=== PATIENT | male | born 1990 | race Hispanic/Latino ===

== ENCOUNTER 2020-07-11 08:52 | Emergency (ER) | payer SELFPAY ==
--- NOTE | 2020-07-11 09:44 | Emergency Department Report ---
HPI - General Chief Complaint: Psych Time Seen by Provider: 07/11/20 09:33 - HPI HPI: Room 12 The patient is a 29-year-old male present with a chief complaint of suicidal homicidal ideation. The patient states for the past 3 days she is felt suicidal and homicidal. Patient states she is had auditory hallucinations telling him to hurt himself and other people. The patient states she is been off of his medications for some time. ED Past Medical Hx - Past Medical History Previous Medical History?: Yes Hx Hypertension: Yes Additional medical history: Schizophrenia, Depression - Surgical History Past Surgical History?: Yes Additional Surgical History: right leg - Family History Family history: no significant - Social History Smoking Status: Never Smoker Substance Use Type: None - Medications Home Medications: Home Medications Medication Instructions Recorded Confirmed Last Taken Type Amlodipine Besylate [Norvasc] 5 mg PO DAILY 07/01/20 07/01/20 1 Week Ago History ~06/24/20 Trazodone HCl 100 mg PO DAILY 07/01/20 07/01/20 1 Week Ago History ~06/24/20 Valproic Acid [DepaKENE] 250 mg PO ONCE 07/01/20 07/01/20 1 Week Ago History ~06/24/20 risperiDONE [RisperDAL] 2 mg PO BID 07/01/20 07/01/20 1 Week Ago History ~06/24/20 ED Review of Systems ROS: Stated complaint: HEARING VOICES Other details as noted in HPI Constitutional: no symptoms reported Respiratory: no symptoms reported Endocrine: no symptoms reported Psychiatric: auditory hallucinations, visual hallucinations, homicidal thoughts, suicidal thoughts Physical Exam - Physical Exam Physical Exam: GENERAL: The patient is well-developed well-nourished male sitting in chair appearing slightly anxious but in no acute distress HEENT: Normocephalic. Atraumatic. Extraocular motions are intact. Patient has moist mucous membranes. NECK: Supple. Trachea midline CHEST/LUNGS: Clear to auscultation. There is no respiratory distress noted. HEART/CARDIOVASCULAR: Regular. There is no tachycardia. There is no gallop rub or murmur. ABDOMEN: Abdomen is soft, nontender. Patient has normal bowel sounds. There is no abdominal distention. SKIN: There is no rash. There is no edema. There is no diaphoresis. NEURO: The patient is awake and alert. The patient is cooperative. The patient has normal speech MUSCULOSKELETAL: There is no evidence of acute injury. ED Medical Decision Making - Lab Data Result diagrams: 07/11/20 09:07 07/11/20 09:07 Laboratory Tests 07/11/20 07/11/20 07/11/20 09:07 09:07 09:07 WBC RBC Hgb Hct MCV MCH MCHC RDW Plt Count Lymph % (Auto) [place] % (Auto) Eos % (Auto) Baso % (Auto) Lymph # [place] # Eos # Baso # Seg Neutrophils % Seg Neutrophils # Sodium 139 Potassium 4.3 Chloride 99.8 Carbon Dioxide 24 Anion Gap 20 BUN 8 L Creatinine 1.0 Estimated GFR > 60 BUN/Creatinine Ratio 8 Glucose 81 Calcium 10.4 H Urine Color Urine Turbidity Urine pH Ur Specific [place] Urine Protein Urine Glucose (UA) Urine Ketones Urine Blood Urine Nitrite Urine Bilirubin Urine Urobilinogen Ur Leukocyte Esterase Urine WBC (Auto) Urine RBC (Auto) Urine Mucus Salicylates Urine Opiates Screen Urine Methadone Screen Acetaminophen 5.0 L Ur Barbiturates Screen Valproic Acid Ur Phencyclidine Scrn Ur Amphetamines Screen U Benzodiazepines Scrn Plasma/Serum Alcohol < 0.01 07/11/20 07/11/20 07/11/20 09:07 09:42 10:12 WBC 8.0 RBC 4.32 Hgb 14.5 Hct 43.1 MCV 100 H MCH 33 H MCHC 34 RDW 13.5 Plt Count 231 Lymph % (Auto) 22.7 [place] % (Auto) 14.0 H Eos % (Auto) 0.3 Baso % (Auto) 0.7 Lymph # 1.8 [place] # 1.1 H Eos # 0.0 Baso # 0.1 Seg Neutrophils % 62.3 Seg Neutrophils # 5.0 Sodium Potassium Chloride Carbon Dioxide Anion Gap BUN Creatinine Estimated GFR BUN/Creatinine Ratio Glucose Calcium Urine Color Yellow Urine Turbidity Clear Urine pH 8.0 H Ur Specific [place] 1.014 Urine Protein <15 mg/dl Urine Glucose (UA) Neg Urine Ketones Neg Urine Blood Neg Urine Nitrite Neg Urine Bilirubin Neg Urine Urobilinogen < 2.0 Ur Leukocyte Esterase Neg Urine WBC (Auto) < 1.0 Urine RBC (Auto) 1.0 Urine Mucus Few Salicylates < 0.3 L Urine Opiates Screen Urine Methadone Screen Acetaminophen Ur Barbiturates Screen Valproic Acid 5.6 L Ur Phencyclidine Scrn Ur Amphetamines Screen U Benzodiazepines Scrn Plasma/Serum Alcohol 07/11/20 10:12 WBC RBC Hgb Hct MCV MCH MCHC RDW Plt Count Lymph % (Auto) [place] % (Auto) Eos % (Auto) Baso % (Auto) Lymph # [place] # Eos # Baso # Seg Neutrophils % Seg Neutrophils # Sodium Potassium Chloride Carbon Dioxide Anion Gap BUN Creatinine Estimated GFR BUN/Creatinine Ratio Glucose Calcium Urine Color Urine Turbidity Urine pH Ur Specific [place] Urine Protein Urine Glucose (UA) Urine Ketones Urine Blood Urine Nitrite Urine Bilirubin Urine Urobilinogen Ur Leukocyte Esterase Urine WBC (Auto) Urine RBC (Auto) Urine Mucus Salicylates Urine Opiates Screen Negative Urine Methadone Screen Negative Acetaminophen Ur Barbiturates Screen Negative Valproic Acid Ur Phencyclidine Scrn Negative Ur Amphetamines Screen Negative U Benzodiazepines Scrn Negative Plasma/Serum Alcohol - Differential Diagnosis Suicidal ideation, homicidal ideation Critical care attestation.: If time is entered above; I have spent that time in minutes in the direct care of this critically ill patient, excluding procedure time. ED Disposition Clinical Impression: Suicidal ideation, Auditory hallucinations, Schizophrenia, Homicidal ideation Disposition: [id number]/TX-65 PSY HOSP/PSY UNIT Is pt being admited?: No Does the pt Need Aspirin: No Condition: Stable Time of Disposition: 11:10 (Awaiting acceptance)
[2020-07-11 09:55] LABS: Basophils # (Auto) 0.1 K/mm3 (0.0-0.1); Basophils % (Auto) 0.7 % (0.0-1.8); Eosinophils % (Auto) 0.3 % (0.0-4.3); Hematocrit 43.1 % (35.5-45.6); Hemoglobin 14.5 gm/dl (11.8-15.2); Lymphocytes # (Auto) 1.8 K/mm3 (1.2-5.4); Lymphocytes % (Auto) 22.7 % (13.4-35.0); Mean Corpuscular HGB Conc 34 % (32-34); Mean Corpuscular Volume 100 fl (84-94); Monocytes # (Auto) 1.1 K/mm3 (0.0-0.8); Platelet Count 231 K/mm3 (140-440); Red Blood Count 4.32 M/mm3 (3.65-5.03); Red Cell Distribution Width 13.5 % (13.2-15.2)
[2020-07-11 10:16] LABS: BUN/Creatinine Ratio 8; Blood Urea Nitrogen 8 mg/dL (9-20); Calcium 10.4 mg/dL (8.4-10.2); Hemolysis Index 20
[2020-07-11 10:29] LABS: Bilirubin,Urine NEG (Negative); Blood,Urine NEG (Negative); Color,Urine Yellow (Yellow); Mucus,Urine FEW /HPF; Protein,Urine <15 mg/dL mg/dL (Negative); Urobilinogen,Urine < 2.0 mg/dL (<2.0); WBC,Urine < 1.0 /HPF (0.0-6.0)
[2020-07-11 10:42] LABS: Amphetamine Screen,Urine Negative; Benzodiazepines Screen,Urine Negative; Methadone Screen,Urine Negative; Opiate Screen,Urine Negative
[2020-07-11 10:55] LABS: Cannabinoid Screen,Urine Positive; Cocaine Screen,Urine Positive
[2020-07-11] MEDS: risperiDONE 1 MG TAB PO SCH ×2 (11:19→22:36)
[2020-07-11] MEDS ORDERED: diphenhydrAMINE 50 MG/ML VIAL IM PRN (11:49)
[2020-07-11] MEDS ORDERED: HALOPERIDOL LACTATE 5 MG/1 ML INJ IM PRN (11:49)
[2020-07-11] MEDS ORDERED: LORazepam 2 MG/ML VIAL IM PRN (11:49)
[2020-07-12 08:41] VITALS: BP 123/91
[2020-07-12] MEDS: risperiDONE 1 MG TAB PO SCH (10:04)
--- NOTE | 2020-07-12 14:15 | Consultation ---
History of Present Illness - Reason for Consult Consult date: 07/12/20 Reason for consult: MHE Requesting physician: GISELA GAMBOA - Chief Complaint Chief complaint: SI - History of Present Psychiatric Illness Per ED Provider: The patient is a 29-year-old male present with a chief complain t of suicidal homicidal ideation. The patient states for the past 3 days she is felt suicidal and homicidal. Patient states she is had auditory hallucinations telling him to hurt himself and other people. The patient states she is been off of his medications for some time. 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 Patient states he is no longer SI and he mentioned that only because he would be allowed to stay. He also endorses to snorting white powder recent and marijuana. He says he does hear voices sometimes but not anymore and he has medi cations where he stays that he needs to go back and continue his meds. He says he is well aware of his schizophrenia and when he takes his meds, he is fine. 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 Cooperation: Participating/engaged Psychomotor Behavior: , unremarkable and within normal limits Mood: Good Affect and affective range: anxious Thought Process: Fluent/Logical, Blocked, Thought Content: Within reality Speech: Normal volume, Regular rate and rhythm Suicidal Ideation: Denies SI Homicidal Ideation: Denies HI Impulse Control: Unimpaired Insight and Judgment: Limited insight and judgment Memory: Natalie Attention: Normal Orientation: Alert, oriented, anxious Diagnosis Substance induce mood disorder Medication non compliance RECOMMENDATIONS Pt states he does not want meds, he has meds at home. MEDICATIONS: Risks, benefits and alternatives of medications discussed with the patient, questions answered and consent obtained from patient. PSYCHOTHERAPY: Supportive psychotherapy provided MEDICAL: Per primary team DELIRIUM PRECAUTIONS: Please re-orient patient frequently, keep lights on during the day, and minimize benzodiazepines and opiates as these medications could worsen patient's confusion. 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 Please contact with any questions and/or concerns. Medications and Allergies Allergies Allergy/AdvReac Type Severity Reaction Status Date / Time No Known Allergies Allergy Unverified 06/30/20 10:15 Home Medications Medication Instructions Recorded Confirmed Last Taken Type Amlodipine Besylate [Norvasc] 5 mg PO DAILY 07/01/20 07/11/20 1 Week Ago History ~06/24/20 Trazodone HCl 100 mg PO DAILY 07/01/20 07/11/20 1 Week Ago History ~06/24/20 Valproic Acid [DepaKENE] 250 mg PO ONCE 07/01/20 07/11/20 1 Week Ago History ~06/24/20 risperiDONE [RisperDAL] 2 mg PO BID 07/01/20 07/11/20 1 Week Ago History ~06/24/20 Active Meds: Active Medications Diphenhydramine HCl (Benadryl) 50 mg IM Q6H PRN PRN Reason: Agitation Last Admin: 07/11/20 11:55 Dose: 50 mg Documented by: Haloperidol Lactate (Haldol) 10 mg IM Q8H PRN PRN Reason: Agitation Lorazepam (Ativan) 2 mg IM Q8H PRN PRN Reason: Agitation Last Admin: 07/11/20 11:55 Dose: 2 mg Documented by: Risperidone (Risperdal) 2 mg PO BID ANDREW Last Admin: 07/12/20 10:04 Dose: 2 mg Documented by: Mental Status Exam - Vital signs Last Vital Signs Temp 98.0 F 07/12/20 08:40 Pulse 93 H 07/12/20 08:40 Resp 20 07/12/20 08:40 BP 123/91 07/12/20 08:40 Pulse Ox 96 07/12/20 08:40 Results Result Diagrams: 07/11/20 09:07 07/11/20 09:07 All other labs normal. Assessment and Plan - Psychiatric problem (1) Cocaine use disorder Current Visit: Yes Status: Acute
== END 2020-07-12 18:14 | disposition home or self-care (01) ==
LOC: ED 08:52
DX: F20.89 Other schizophrenia (principal); F13.94 Sedative, hypnotic or anxiolytic use, unspecified with sedative, hypnotic or anxiolytic-induced mood disorder
CPT/HCPCS: 36415; 80048; 80164; 80307; 81001; 85025; 96372; 99284; J1200; J1630; J2060; 80320; G0480

== ENCOUNTER 2020-07-12 23:52 | Emergency (ER) | payer SELFPAY ==
--- NOTE | 2020-07-13 00:26 | Emergency Department Report ---
ED Psych HPI - General Chief Complaint: Psych Stated Complaint: MH Time Seen by Provider: 07/13/20 00:07 Source: patient, EMS Mode of arrival: Ambulatory - History of Present Illness Initial Comments: Patient is a 29-year-old F [place] male who is presenting again for homicidal suicidal ideations. Patient was seen by our psych assessment team and apparently according to their note stated that he only stated that he was homicidal suicidal so that he can have somewhere to stay. Patient is adamant that this is not true and that he is hearing voices telling him to kill himself and shoot people. Patient states he needs to go somewhere to be stabilized because he feels like he is a harm to himself and others. Again patient is adamant that he did not state that he was only here for secondary gain. - Related Data Home Medications Medication Instructions Recorded Confirmed Last Taken Amlodipine Besylate [Norvasc] 5 mg PO DAILY 07/01/20 07/13/20 1 Week Ago ~06/24/20 Trazodone HCl 100 mg PO DAILY 07/01/20 07/13/20 1 Week Ago ~06/24/20 Valproic Acid [DepaKENE] 250 mg PO ONCE 07/01/20 07/13/20 1 Week Ago ~06/24/20 risperiDONE [RisperDAL] 2 mg PO BID 07/01/20 07/13/20 1 Week Ago ~06/24/20 Allergies Allergy/AdvReac Type Severity Reaction Status Date / Time No Known Allergies Allergy Unverified 06/30/20 10:15 ED Review of Systems ROS: Stated complaint: MH Other details as noted in HPI Comment: All other systems reviewed and negative ED Past Medical Hx - Past Medical History Previous Medical History?: Yes Hx Hypertension: Yes Additional medical history: Schizophrenia, Depression - Surgical History Past Surgical History?: Yes Additional Surgical History: right leg - Social History Smoking Status: Unknown if ever smoked Substance Use Type: None - Medications Home Medications: Home Medications Medication Instructions Recorded Confirmed Last Taken Type Amlodipine Besylate [Norvasc] 5 mg PO DAILY 07/01/20 07/13/20 1 Week Ago History ~06/24/20 Trazodone HCl 100 mg PO DAILY 07/01/20 07/13/20 1 Week Ago History ~06/24/20 Valproic Acid [DepaKENE] 250 mg PO ONCE 07/01/20 07/13/20 1 Week Ago History ~06/24/20 risperiDONE [RisperDAL] 2 mg PO BID 07/01/20 07/13/20 1 Week Ago History ~06/24/20 ED Physical Exam - General Limitations: No Limitations General appearance: alert, in no apparent distress - Head Head exam: Present: atraumatic, normocephalic - Eye Eye exam: Present: normal appearance, PERRL, EOMI - ENT ENT exam: Present: mucous membranes moist - Neck Neck exam: Present: normal inspection - Respiratory Respiratory exam: Present: normal lung sounds bilaterally. Absent: respiratory distress, wheezes, rales, rhonchi - Cardiovascular Cardiovascular Exam: Present: regular rate, normal rhythm, normal heart sounds. Absent: systolic murmur, diastolic murmur, rubs, gallop - GI/Abdominal GI/Abdominal exam: Present: soft, normal bowel sounds - Rectal Rectal exam: Present: deferred - Extremities Exam Extremities exam: Present: normal inspection - Back Exam Back exam: Present: normal inspection - Neurological Exam Neurological exam: Present: alert, oriented X3 - Psychiatric Psychiatric exam: Present: normal affect, normal mood, other (angry and aggressive tone with speech) - Skin Skin exam: Present: warm, dry, intact, normal color. Absent: rash ED Course Vital Signs 07/13/20 00:04 Temperature 98.3 F Pulse Rate 92 H Respiratory 18 Rate Blood Pressure 140/100 O2 Sat by Pulse 99 Oximetry Critical care attestation.: If time is entered above; I have spent that time in minutes in the direct care of this critically ill patient, excluding procedure time. ED Disposition Condition: Stable
[2020-07-13] MEDS ORDERED: LORazepam 2 MG/ML VIAL IM ONE (00:33)
[2020-07-13] MEDS ORDERED: LORazepam 2 MG/ML VIAL ONE (00:38)
[2020-07-13 00:48] LABS: Amphetamine Screen,Urine PRESUMPTIVE POSITIVE; Benzodiazepines Screen,Urine PRESUMPTIVE NEGATIVE; Cannabinoid Screen,Urine PRESUMPTIVE POSITIVE; Cocaine Screen,Urine PRESUMPTIVE POSITIVE; Methadone Screen,Urine PRESUMPTIVE NEGATIVE; Opiate Screen,Urine PRESUMPTIVE NEGATIVE
[2020-07-13 01:17] LABS: Basophils # (Auto) 0.1 K/mm3 (0.0-0.1); Basophils % (Auto) 1.1 % (0.0-1.8); Eosinophils # (Auto) 0.2 K/mm3 (0.0-0.4); Eosinophils % (Auto) 1.7 % (0.0-4.3); Hematocrit 39.4 % (35.5-45.6); Hemoglobin 13.4 gm/dl (11.8-15.2); Lymphocytes # (Auto) 2.5 K/mm3 (1.2-5.4); Lymphocytes % (Auto) 27.8 % (13.4-35.0); Mean Corpuscular HGB Conc 34 % (32-34); Mean Corpuscular Volume 99 fl (84-94); Monocytes # (Auto) 0.9 K/mm3 (0.0-0.8); Monocytes % (Auto) 10.1 % (0.0-7.3); Platelet Count 210 K/mm3 (140-440); Red Blood Count 3.98 M/mm3 (3.65-5.03); Red Cell Distribution Width 13.2 % (13.2-15.2)
[2020-07-13 01:23] LABS: BUN/Creatinine Ratio 17; Blood Urea Nitrogen 20 mg/dL (9-20); Calcium 9.6 mg/dL (8.4-10.2); Hemolysis Index 9
[2020-07-13] MEDS ORDERED: ZIPRASIDONE MESYLATE 20 MG VIAL IM ONE (08:02)
[2020-07-13] MEDS ORDERED: ZIPRASIDONE 20 MG CAP PO ONE (08:07)
[2020-07-13] MEDS: amLODIPine 5 MG TAB PO SCH (10:54)
--- NOTE | 2020-07-13 12:23 | Consultation ---
History of Present Illness - Reason for Consult Consult date: 07/13/20 Reason for consult: MHE Requesting physician: VANE SIMONS - History of Present Psychiatric Illness Per ED Provider: Patient is a 29-year-old F [place]enegr[place] male who is presenting again for homicidal suicidal ideations. Patient was seen by our psych assessment team and apparently according to their note stated that he only stated that he was homicidal suicidal so that he can have somewhere to stay. Patient is adamant that this is not true and that he is hearing voices telling him to kill himself and shoot people. Patient states he needs to go somewhere t o be stabilized because he feels like he is a harm to himself and others. Again patient is adamant that he did not state that he was only here for secondary gain. 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 Again patient is denying being SI, or hearing voices, says he came back here because he needs social resources. I informed patient he had told the ED Provider that he never mentioned to me he was not SI or not hearing voices and he his doing the same thing again. 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 Cooperation: Participating/engaged Psychomotor Behavior: , unremarkable and within normal limits Mood: Good Affect and affective range: anxious Thought Process: Fluent/Logical, Blocked, Thought Content: Within reality Speech: Normal volume, Regular rate and rhythm Suicidal Ideation: Denies SI Homicidal Ideation: Denies HI Impulse Control: Unimpaired Insight and Judgment: Limited insight and judgment Memory: Natalie Attention: Normal Orientation: Alert, oriented, anxious Diagnosis Substance induce mood disorder Medication non compliance Schizophrenia RECOMMENDATIONS Pt is unstable mentally, drug screen positive for drug use, he is also requ esting to be discharged, denying SI, similar to his request yesterday and was discharged before checking back in again for similar symptoms. Informed pt MEDICATIONS: Meds started Risks, benefits and alternatives of medications discussed with the patient, questions answered and consent obtained from patient. PSYCHOTHERAPY: Supportive psychotherapy provided MEDICAL: Per primary team DELIRIUM PRECAUTIONS: Please re-orient patient frequently, keep lights on during the day, and minimize benzodiazepines and opiates as these medications could worsen patient's confusion. 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 Please contact with any questions and/or concerns. Medications and Allergies Allergies Allergy/AdvReac Type Severity Reaction Status Date / Time No Known Allergies Allergy Unverified 06/30/20 10:15 Home Medications Medication Instructions Recorded Confirmed Last Taken Type Amlodipine Besylate [Norvasc] 5 mg PO DAILY 07/01/20 07/13/20 1 Week Ago History ~06/24/20 Trazodone HCl 100 mg PO DAILY 07/01/20 07/13/20 1 Week Ago History ~06/24/20 Valproic Acid [DepaKENE] 250 mg PO ONCE 07/01/20 07/13/20 1 Week Ago History ~06/24/20 risperiDONE [RisperDAL] 2 mg PO BID 07/01/20 07/13/20 1 Week Ago History ~06/24/20 Active Meds: Active Medications Amlodipine Besylate (Amlodipine) 5 mg PO DAILY [facility] Last Admin: 07/13/20 10:54 Dose: 5 mg Documented by: Mental Status Exam - Vital signs Last Vital Signs Temp 97.2 F L 07/13/20 11:17 Pulse 82 07/13/20 11:17 Resp 18 07/13/20 11:17 BP 122/77 07/13/20 11:17 Pulse Ox 99 07/13/20 11:17 Results Result Diagrams: 07/13/20 00:37 07/13/20 00:37 Abnormal lab results 07/13/20 07/13/20 07/13/20 Range/Units 00:37 00:37 00:37 MCV 99 H (84-94) fl MCH 34 H (28-32) pg [place] % (Auto) 10.1 H (0.0-7.3) % [place] # 0.9 H (0.0-0.8) K/mm3 Salicylates < 0.3 L (2.8-20.0) mg/dL Acetaminophen 5.0 L (10.0-30.0) ug/mL All other labs normal. Assessment and Plan - Psychiatric problem (1) Cocaine use disorder Current Visit: No Status: Acute (2) Schizophrenia Current Visit: No Status: Acute
[2020-07-13] MEDS ORDERED: ZIPRASIDONE MESYLATE 20 MG VIAL IM PRN (12:51)
[2020-07-13] MEDS ORDERED: LORazepam 2 MG/ML VIAL IM PRN (12:51)
[2020-07-13] MEDS: HALOPERIDOL 5 MG TAB PO SCH ×2 (13:36→22:18)
[2020-07-13] MEDS: diphenhydrAMINE 25 MG CAP PO SCH ×2 (13:36→22:18)
--- NOTE | 2020-07-14 07:48 | Progress Note ---
Subjective - Reason for Consult Consult date: 07/14/20 Reason for consult: MHE Requesting physician: VANE SIMONS - Chief Complaint Chief complaint: Per ED Nurse: [id number] Received report from KATALINA Chavarria, pt resting quietly on recliner, resp even and non labored, no acute distress noted, no s/s of self harm noted, ambulates as needed to restroom without difficulty. Psych ED Patient states he would like to be sent to [place] now, he is hearing voices and feeling SI. Pt is constantly persistent and requesting to be transferred there now. Pt reports has been taking his medications and denies side effects. REVIEW OF SYSTEMS Constitutional: Negative for weight loss ENT: Negative for stridor Respiratory: Negative for cough or hemoptysis All other systems reviewed and are negative MENTAL STATUS EXAMINATION General Appearance and Behavior: Age appropriate, poor hygiene, wearing appropriate clothes, good eye contact, cooperative polite with questioning. Cooperation: Participating/engaged Psychomotor Behavior: , unremarkable and within normal limits Mood: Good Affect and affective range: anxious Thought Process: Illogical Thought Content: Hallucinations. Speech: Normal volume, Regular rate and rhythm Suicidal Ideation: SI Homicidal Ideation: Denies HI Impulse Control: Unimpaired Insight and Judgment: Limited insight and judgment Memory: Natalie Attention: Normal Orientation: Alert, oriented, anxious Diagnosis Substance induce mood disorder Medication non compliance Schizophrenia RECOMMENDATIONS Pt is unstable mentally, drug screen positive for drug use, he is also requesting to be discharged, denying SI, similar to his request yesterday and was discharged before checking back in again for similar symptoms. Informed pt MEDICATIONS: Meds started Risks, benefits and alternatives of medications discussed with the patient, questions answered and consent obtained from patient. PSYCHOTHERAPY: Supportive psychotherapy provided MEDICAL: Per primary team DELIRIUM PRECAUTIONS: Please re-orient patient frequently, keep lights on during the day, and minimize benzodiazepines and opiates as these medications could worsen patient's confusion. 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 Please contact with any questions and/or concerns. Mental Status Exam - Vital signs Last Vital Signs Temp 98.4 F 07/14/20 02:00 Pulse 78 07/14/20 02:00 Resp 16 07/14/20 02:00 BP 122/76 07/14/20 02:00 Pulse Ox 98 07/14/20 02:00 Assessment and Plan - Patient Problems (1) Cocaine use disorder Current Visit: No Status: Acute (2) Schizophrenia Current Visit: No Status: Acute
[2020-07-14] MEDS: amLODIPine 5 MG TAB PO SCH (11:31)
[2020-07-14] MEDS: diphenhydrAMINE 25 MG CAP PO SCH ×3 (11:31→22:03)
[2020-07-14] MEDS: HALOPERIDOL 5 MG TAB PO SCH ×2 (11:31→22:03)
[2020-07-15 08:45] VITALS: BP 123/100
[2020-07-15] MEDS: amLODIPine 5 MG TAB PO SCH ×2 (12:24→13:38)
[2020-07-15] MEDS: diphenhydrAMINE 25 MG CAP PO SCH ×3 (12:24→15:32)
[2020-07-15] MEDS: HALOPERIDOL 5 MG TAB PO SCH ×2 (12:24→13:38)
== END 2020-07-15 16:15 ==
LOC: EEVIPCON 23:52 → ED 23:52
DX: F20.89 Other schizophrenia (principal); F32.89 Other specified depressive episodes; F15.24 Other stimulant dependence with stimulant-induced mood disorder
CPT/HCPCS: 36415; 80048; 80307; 85025; 96372; 99285; J2060; 80320; G0480

== ENCOUNTER 2020-07-22 15:11 | Emergency (ER) | payer SELFPAY ==
[2020-07-22] MEDS ORDERED: ZIPRASIDONE MESYLATE 20 MG VIAL IM ONE ×2 (15:54→22:20)
[2020-07-22 16:04] LABS: Bilirubin,Urine NEG (Negative); Blood,Urine NEG (Negative); Color,Urine Yellow (Yellow); Mucus,Urine FEW /HPF; Protein,Urine <15 mg/dL mg/dL (Negative)
[2020-07-22 16:11] LABS: Basophils # (Auto) 0.1 K/mm3 (0.0-0.1); Eosinophils # (Auto) 0.1 K/mm3 (0.0-0.4); Eosinophils % (Auto) 1.3 % (0.0-4.3); Hematocrit 39.8 % (35.5-45.6); Hemoglobin 13.2 gm/dl (11.8-15.2); Lymphocytes # (Auto) 1.2 K/mm3 (1.2-5.4); Mean Corpuscular HGB Conc 33 % (32-34); Mean Corpuscular Volume 101 fl (84-94); Monocytes # (Auto) 0.7 K/mm3 (0.0-0.8); Monocytes % (Auto) 12.1 % (0.0-7.3); Platelet Count 180 K/mm3 (140-440); Red Blood Count 3.96 M/mm3 (3.65-5.03); Red Cell Distribution Width 13.5 % (13.2-15.2)
[2020-07-22 16:12] LABS: Amphetamine Screen,Urine PRESUMPTIVE POSITIVE; Benzodiazepines Screen,Urine PRESUMPTIVE NEGATIVE; Cannabinoid Screen,Urine PRESUMPTIVE POSITIVE; Cocaine Screen,Urine PRESUMPTIVE POSITIVE; Methadone Screen,Urine PRESUMPTIVE NEGATIVE; Opiate Screen,Urine PRESUMPTIVE NEGATIVE
[2020-07-22 16:30] LABS: Alanine Aminotransferase 12 units/L (7-56); Albumin 4.4 g/dL (3.9-5); BUN/Creatinine Ratio 13; Blood Urea Nitrogen 16 mg/dL (9-20); Calcium 9.8 mg/dL (8.4-10.2); Hemolysis Index 5
--- NOTE | 2020-07-22 18:46 | Emergency Department Report ---
ED Psych HPI - General Chief Complaint: Psych Stated Complaint: HEARING VOICES Time Seen by Provider: 07/22/20 15:42 Source: patient Mode of arrival: Ambulatory - History of Present Illness Initial Comments: CC: "I brought myself here. I am hearing voices." HPI: THis is a 29 year male with hx of schizophrenia and cocaine use who presents with auditory hallucinations and suicidal ideation. He is hearing voices telling him to kill him self. He plans to "cut myself up or hang myself". He is not taking psychiatric medication. MD Complaint: suicidal ideation, other (command hallucinations) -: Gradual, days(s) (Several days) Associated Psychiatric Symptoms: depression, suicidal ideation, auditory hallucinations History of same: Yes Quality: constant Improves With: none Worsens With: none Context: recent drug abuse, not taking psychiatric, other (Homelessness) Treatments Prior to Arrival: none If Self Harm: admits thoughts of, has plan - Related Data Home Medications Medication Instructions Recorded Confirmed Last Taken Amlodipine Besylate [Norvasc] 5 mg PO DAILY 07/01/20 07/13/20 1 Week Ago ~06/24/20 Trazodone HCl 100 mg PO DAILY 07/01/20 07/13/20 1 Week Ago ~06/24/20 Valproic Acid [DepaKENE] 250 mg PO ONCE 07/01/20 07/13/20 1 Week Ago ~06/24/20 risperiDONE [RisperDAL] 2 mg PO BID 07/01/20 07/13/20 1 Week Ago ~06/24/20 Allergies Allergy/AdvReac Type Severity Reaction Status Date / Time No Known Allergies Allergy Unverified 06/30/20 10:15 ED Review of Systems ROS: Stated complaint: HEARING VOICES Other details as noted in HPI Comment: All other systems reviewed and negative Constitutional: denies: malaise Respiratory: denies: cough Cardiovascular: denies: chest pain Endocrine: denies: excessive sweating, flushing Gastrointestinal: denies: abdominal pain, nausea, vomiting ED Past Medical Hx - Past Medical History Previous Medical History?: Yes Hx Hypertension: Yes Hx Psychiatric Treatment: Yes Additional medical history: Schizophrenia, Depression - Surgical History Past Surgical History?: Yes Additional Surgical History: right leg - Social History Smoking Status: Unknown if ever smoked Substance Use Type: None - Medications Home Medications: Home Medications Medication Instructions Recorded Confirmed Last Taken Type Amlodipine Besylate [Norvasc] 5 mg PO DAILY 07/01/20 07/13/20 1 Week Ago History ~06/24/20 Trazodone HCl 100 mg PO DAILY 07/01/20 07/13/20 1 Week Ago History ~06/24/20 Valproic Acid [DepaKENE] 250 mg PO ONCE 07/01/20 07/13/20 1 Week Ago History ~06/24/20 risperiDONE [RisperDAL] 2 mg PO BID 07/01/20 07/13/20 1 Week Ago History ~06/24/20 ED Physical Exam - General Limitations: No Limitations General appearance: alert, in no apparent distress, other (Poor hygiene, strong off putting body odor) - Head Head exam: Present: atraumatic, normocephalic - Eye Eye exam: Present: normal appearance - ENT ENT exam: Present: mucous membranes moist - Neck Neck exam: Present: normal inspection, full ROM - Respiratory Respiratory exam: Present: normal lung sounds bilaterally. Absent: respiratory distress, wheezes, rales - Cardiovascular Cardiovascular Exam: Present: regular rate, normal rhythm, normal heart sounds. Absent: systolic murmur, diastolic murmur, rubs, gallop - GI/Abdominal GI/Abdominal exam: Present: soft, normal bowel sounds. Absent: distended, tenderness, guarding - Rectal Rectal exam: Present: deferred - Extremities Exam Extremities exam: Present: normal inspection - Neurological Exam Neurological exam: Present: alert, oriented X3 - Psychiatric Psychiatric exam: Present: normal affect, normal mood - Skin Skin exam: Present: warm, dry, intact, normal color. Absent: rash ED Course Vital Signs 07/22/20 07/22/20 15:18 15:59 Temperature 98.0 F Pulse Rate 99 H Respiratory 20 18 Rate Blood Pressure 134/89 O2 Sat by Pulse 96 97 Oximetry ED Medical Decision Making - Lab Data Result diagrams: 07/22/20 15:52 07/22/20 15:52 Laboratory Results - last 24 hr 07/22/20 07/22/20 07/22/20 15:52 15:52 15:52 WBC 5.7 RBC 3.96 Hgb 13.2 Hct 39.8 MCV 101 H MCH 33 H MCHC 33 RDW 13.5 Plt Count 180 Lymph % (Auto) 21.0 Bullock % (Auto) 12.1 H Eos % (Auto) 1.3 Baso % (Auto) 1.0 Lymph # 1.2 Bullock # 0.7 Eos # 0.1 Baso # 0.1 Seg Neutrophils % 64.6 Seg Neutrophils # 3.7 Sodium Potassium Chloride Carbon Dioxide Anion Gap BUN Creatinine Estimated GFR BUN/Creatinine Ratio Glucose Calcium Total Bilirubin AST ALT Alkaline Phosphatase Total Protein Albumin Albumin/Globulin Ratio Urine Color Yellow Urine Turbidity Clear Urine pH 6.0 Ur Specific Mchenry 1.023 Urine Protein <15 mg/dl Urine Glucose (UA) Neg Urine Ketones Neg Urine Blood Neg Urine Nitrite Neg Urine Bilirubin Neg Urine Urobilinogen 2.0 Ur Leukocyte Esterase Neg Urine WBC (Auto) 1.0 Urine RBC (Auto) 1.0 Urine Mucus Few Salicylates Urine Opiates Screen Presumptive negative Urine Methadone Screen Presumptive negative Acetaminophen Ur Barbiturates Screen Presumptive negative Ur Phencyclidine Scrn Presumptive negative Ur Amphetamines Screen Presumptive positive U Benzodiazepines Scrn Presumptive negative Urine Cocaine Screen Presumptive positive U Marijuana (THC) Screen Presumptive positive Drugs of Abuse Note Disclamer Plasma/Serum Alcohol 07/22/20 07/22/20 07/22/20 15:52 15:52 15:52 WBC RBC Hgb Hct MCV MCH MCHC RDW Plt Count Lymph % (Auto) Bullock % (Auto) Eos % (Auto) Baso % (Auto) Lymph # Bullock # Eos # Baso # Seg Neutrophils % Seg Neutrophils # Sodium 137 Potassium 4.2 Chloride 97.0 L Carbon Dioxide 27 Anion Gap 17 BUN 16 Creatinine 1.2 Estimated GFR > 60 BUN/Creatinine Ratio 13 Glucose 77 Calcium 9.8 Total Bilirubin 0.90 AST 20 ALT 12 Alkaline Phosphatase 46 Total Protein 7.3 Albumin 4.4 Albumin/Globulin Ratio 1.5 Urine Color Urine Turbidity Urine pH Ur Specific Mchenry Urine Protein Urine Glucose (UA) Urine Ketones Urine Blood Urine Nitrite Urine Bilirubin Urine Urobilinogen Ur Leukocyte Esterase Urine WBC (Auto) Urine RBC (Auto) Urine Mucus Salicylates < 0.3 L Urine Opiates Screen Urine Methadone Screen Acetaminophen 5.0 L Ur Barbiturates Screen Ur Phencyclidine Scrn Ur Amphetamines Screen U Benzodiazepines Scrn Urine Cocaine Screen U Marijuana (THC) Screen Drugs of Abuse Note Plasma/Serum Alcohol 07/22/20 15:52 WBC RBC Hgb Hct MCV MCH MCHC RDW Plt Count Lymph % (Auto) Bullock % (Auto) Eos % (Auto) Baso % (Auto) Lymph # Bullock # Eos # Baso # Seg Neutrophils % Seg Neutrophils # Sodium Potassium Chloride Carbon Dioxide Anion Gap BUN Creatinine Estimated GFR BUN/Creatinine Ratio Glucose Calcium Total Bilirubin AST ALT Alkaline Phosphatase Total Protein Albumin Albumin/Globulin Ratio Urine Color Urine Turbidity Urine pH Ur Specific Mchenry Urine Protein Urine Glucose (UA) Urine Ketones Urine Blood Urine Nitrite Urine Bilirubin Urine Urobilinogen Ur Leukocyte Esterase Urine WBC (Auto) Urine RBC (Auto) Urine Mucus Salicylates Urine Opiates Screen Urine Methadone Screen Acetaminophen Ur Barbiturates Screen Ur Phencyclidine Scrn Ur Amphetamines Screen U Benzodiazepines Scrn Urine Cocaine Screen U Marijuana (THC) Screen Drugs of Abuse Note Plasma/Serum Alcohol < 0.01 - Medical Decision Making Ms. Finn presents with command hallucinations instructing him to harm himself. He is currently not taking psychiatric medications. UDS is positive for marijuana amphetamines and cocaine. CBC chemistry serum toxicology urinalysis otherwise unremarkable. Patient is medically clear for psychiatric care. 1013 involuntary form has been completed. Involuntary hold protocol initiated. Critical care attestation.: If time is entered above; I have spent that time in minutes in the direct care of this critically ill patient, excluding procedure time. ED Disposition Clinical Impression: Schizophrenia, Suicidal ideation, Cocaine use disorder Is pt being admited?: No Does the pt Need Aspirin: No Condition: Stable Referrals: PRIMARY CARE, [Primary Care Provider] - 3-5 Days
[2020-07-22] MEDS ORDERED: risperiDONE 1 MG TAB PO ONE (21:55)
[2020-07-22] MEDS ORDERED: VALPROIC ACID 250 MG CAP PO ONE (21:55)
[2020-07-22] MEDS ORDERED: traZODone 50 MG TAB PO ONE (21:55)
[2020-07-22] MEDS ORDERED: WATER FOR INJ Sterile (PF) 10 ML ONE (22:23)
[2020-07-23 09:21] VITALS: BP 129/81
--- NOTE | 2020-07-23 11:00 | Consultation ---
History of Present Illness - Reason for Consult Consult date: 07/23/20 Reason for consult: SI - History of Present Psychiatric Illness Joel Blackmon is a 29y/o male patient who presents to the ER for suicidal thoughts and hallucinations. During my interview with the patient he is a/o x 3. He is initially not forthcoming. The patient is calm and cooperative. He is ple asant and makes good eye contact. The patient denies drug use although his UDS is positive. The patient denies SI/HI or hallucinations of any kind. He tells me "ma'am I just said that when I came in." He then says, "I'm just gone tell the truth. I don't want to lie to you." He says "I've been off my meds for about a week. I just left a facility." He then says, "like that lady told me last night. I don't want to keep in and out of facilities. I just need my prescriptions." Juan states "I have goals and I'm gone do something with my life. I can't keep running here every time." He says he has a history of "schizophrenia and takes Trazodone 100, depakote 250 and rispseridone 2mg." He states, "If you can give me that I'm good." The patient then says, "listen, I'm telling you the truth. I don't have no suicidal, homicidal thoughts or hallucinations." PAST PSYCHIATRIC HISTORY Diagnoses: shizophrenia Suicide attempts or Self-harm behavior: 2 to 3 times Prior psychiatric hospitalizations: "a couple" Substance Abuse history: cocaine, marijuana, Meth Previous psychiatric medications tried: yes Outpatient treatment: not in three months PAST MEDICAL HISTORY: Family Psychiatric History: None reported or documented SOCIAL HISTORY Marital Status: single Living Arrangements: homeless Employment Status: Unemployed Access to guns/weapons: none reported Education: 9th grade History of Abuse: none reported Legal History: REVIEW OF SYSTEMS Constitutional: Negative for weight loss ENT: Negative for stridor Respiratory: Negative for cough or hemoptysis All other systems reviewed and are negative MENTAL STATUS EXAMINATION General Appearance and Behavior: Age appropriate, wearing appropriate clothes, good eye contact, cooperative polite with questioning. Cooperation: Participating/engaged Psychomotor Behavior: unremarkable and within normal limits Mood: Good Affect and affective range: Congruent with stated mood Thought Process: Fluent/Logical Thought Content: Within reality Speech: Normal volume, Regular rate and rhythm Suicidal Ideation: Denies SI Homicidal Ideation: Denies HI Hallucinations: Denies Delusions: None elicited Insight and Judgment: Limited insight and judgment Memory: Normal Attention: Normal Orientation: Alert, oriented, anxious Diagnosis Substance induce mood disorder Medication non compliance Schizophrenia by history RECOMMENDATIONS D/c 1013 MEDICATIONS: Give ordered Risperidone and Depakote prior to discharge Scripts: Trazodone 100mg po qhs Depakote Dr 250mg po BID Risperidone 2mg po BID Risks, benefits and alternatives of medications discussed with the patient, questions answered and consent obtained from patient. PSYCHOTHERAPY: Supportive psychotherapy provided MEDICAL: Per primary team DELIRIUM PRECAUTIONS: Please re-orient patient frequently, keep lights on during the day, and minimize benzodiazepines and opiates as these medications could worsen patient's confusion. COUNTER ATTENDANT: DISPOSITION: No indication for acute inpatient psychiatric hospitalization at this time. The patient understands that if SI/HI or any fear of endangerment are to arise, the patient should seek immediate assistance including the crisis hotline, 911 and/or ER. The commanding officer garage to further discuss safety plan, and give the patient resources for outpatient services, cognitive behavioral therapy and drug rehabilitation programs. The patient to abstain from all illicit drug use He is to follow up with outpatient psych in 7 to 14 days upon discharge. FOLLOW-UP: Will sign off Thank you for the consult. Please contact with any questions and/or concerns. Medications and Allergies Allergies Allergy/AdvReac Type Severity Reaction Status Date / Time crab Allergy Unknown Verified 07/22/20 22:02 Home Medications Medication Instructions Recorded Confirmed Last Taken Type Trazodone HCl 100 mg PO DAILY 07/01/20 07/22/20 07/20/20 History Valproic Acid [DepaKENE] 250 mg PO ONCE 07/01/20 07/22/20 07/20/20 History risperiDONE [RisperDAL] 2 mg PO BID 07/01/20 07/22/20 07/20/[address] [DepaKOTE DR] 250 mg PO BID #60 tablet 07/23/20 Unknown Rx risperiDONE [RisperDAL] 2 mg PO BID #60 tablet 07/23/20 Unknown Rx traZODone [Desyrel] 100 mg PO QHS #30 tablet 07/23/20 Unknown Rx Mental Status Exam - Vital signs Last Vital Signs Temp 98.8 F 07/23/20 09:20 Pulse 75 07/23/20 09:20 Resp 20 07/23/20 09:20 BP 129/81 07/23/20 09:20 Pulse Ox 98 07/23/20 00:23 Results Result Diagrams: 07/22/20 15:52 07/22/20 15:52 Abnormal lab results 07/22/20 07/22/20 07/22/20 Range/Units 15:52 15:52 15:52 MCV 101 H (84-94) fl MCH 33 H (28-32) pg Dickens % (Auto) 12.1 H (0.0-7.3) % Chloride 97.0 L (98-107) mmol/L Salicylates < 0.3 L (2.8-20.0) mg/dL Acetaminophen (10.0-30.0) ug/mL 07/22/20 Range/Units 15:52 MCV (84-94) fl MCH (28-32) pg Dickens % (Auto) (0.0-7.3) % Chloride (98-107) mmol/L Salicylates (2.8-20.0) mg/dL Acetaminophen 5.0 L (10.0-30.0) ug/mL All other labs normal.
[2020-07-23] MEDS ORDERED: DIVALPROEX DR 250 MG TAB PO ONE (12:00)
[2020-07-23] MEDS ORDERED: risperiDONE 1 MG TAB PO ONE (12:00)
== END 2020-07-23 11:45 | disposition home or self-care (01) ==
LOC: ED 15:11
DX: F25.1 Schizoaffective disorder, depressive type (principal); F14.10 Cocaine abuse, uncomplicated; R45.851 Suicidal ideations; I10 Essential (primary) hypertension; Z79.899 Other long term (current) drug therapy; Z91.013 Allergy to seafood; Z98.890 Other specified postprocedural states
CPT/HCPCS: 36415; 80053; 80164; 80307; 81001; 85025; 96372; 99284; J3486; 80320; G0480

== ENCOUNTER 2020-07-26 14:27 | Emergency (ER) | payer SELFPAY ==
--- NOTE | 2020-07-26 15:26 | Emergency Department Report ---
HPI - General Chief Complaint: Psych Time Seen by Provider: 07/26/20 15:15 - HPI HPI: Room 15 The patient is a 29-year-old male present with a chief complaint of auditory hallucinations and suicidal ideation. Patient has a history of schizophrenia and states for 1 day she has had auditory hallucinations telling him to kill family and himself. Patient admits to suicidal ideation for 1 day but denies making any actual attempts ED Past Medical Hx - Past Medical History Previous Medical History?: Yes Hx Hypertension: Yes Hx Psychiatric Treatment: Yes Additional medical history: Schizophrenia, Depression - Surgical History Past Surgical History?: Yes Additional Surgical History: right leg - Family History Family history: no significant - Social History Smoking Status: Unknown if ever smoked Substance Use Type: None - Medications Home Medications: Home Medications Medication Instructions Recorded Confirmed Last Taken Type Trazodone HCl 100 mg PO DAILY 07/01/20 07/22/20 07/20/20 History Valproic Acid [DepaKENE] 250 mg PO ONCE 07/01/20 07/22/20 07/20/20 History risperiDONE [RisperDAL] 2 mg PO BID 07/01/20 07/22/20 07/20/[address] [Leonidas EDEN] 250 mg PO BID #60 tablet 07/23/20 Unknown Rx risperiDONE [RisperDAL] 2 mg PO BID #60 tablet 07/23/20 Unknown Rx traZODone [Desyrel] 100 mg PO QHS #30 tablet 07/23/20 Unknown Rx ED Review of Systems ROS: Stated complaint: HEARING VOICES/FEELING SUCIDAL Other details as noted in HPI Constitutional: no symptoms reported Respiratory: no symptoms reported Endocrine: no symptoms reported Psychiatric: auditory hallucinations, homicidal thoughts, suicidal thoughts Physical Exam - Physical Exam Vital Signs: Vital Signs 07/26/20 14:51 Temperature 98.5 F Pulse Rate 97 H Respiratory 16 Rate Blood Pressure 135/83 O2 Sat by Pulse 98 Oximetry Physical Exam: GENERAL: The patient is well-developed well-nourished male lying on stretcher not appearing to be in acute distress. [] HEENT: Normocephalic. Atraumatic. Extraocular motions are intact. Patient has moist mucous membranes. NECK: Supple. Trachea midline CHEST/LUNGS: Clear to auscultation. There is no respiratory distress noted. HEART/CARDIOVASCULAR: Regular. There is no tachycardia. There is no gallop rub or murmur. ABDOMEN: Abdomen is soft, nontender. Patient has normal bowel sounds. There is no abdominal distention. SKIN: There is no rash. There is no edema. There is no diaphoresis. NEURO: The patient is awake, alert, and oriented. The patient is cooperative. The patient has normal speech MUSCULOSKELETAL: There is no evidence of acute injury. ED Course Vital Signs 07/26/20 14:51 Temperature 98.5 F Pulse Rate 97 H Respiratory 16 Rate Blood Pressure 135/83 O2 Sat by Pulse 98 Oximetry ED Medical Decision Making - Lab Data Result diagrams: 07/26/20 15:43 07/26/20 15:43 Laboratory Tests 07/26/20 07/26/20 07/26/20 15:43 15:43 15:43 WBC 10.3 RBC 3.88 Hgb 13.2 Hct 38.4 MCV 99 H MCH 34 H MCHC 34 RDW 13.4 Plt Count 199 Lymph % (Auto) 15.2 Garden % (Auto) 14.7 H Eos % (Auto) 0.2 Baso % (Auto) 1.3 Lymph # 1.6 Garden # 1.5 H Eos # 0.0 Baso # 0.1 Seg Neutrophils % 68.6 Seg Neutrophils # 7.1 Sodium 138 Potassium 4.2 Chloride 98.7 Carbon Dioxide 20 L D Anion Gap 24 BUN 17 Creatinine 1.2 Estimated GFR > 60 BUN/Creatinine Ratio 14 Glucose 113 H Calcium 9.6 Urine Color Urine Turbidity Urine pH Ur Specific Alva Urine Protein Urine Glucose (UA) Urine Ketones Urine Blood Urine Nitrite Urine Bilirubin Urine Urobilinogen Ur Leukocyte Esterase Urine WBC (Auto) Urine RBC (Auto) U Epithel Cells (Auto) Urine Mucus Salicylates < 0.3 L Urine Opiates Screen Urine Methadone Screen Acetaminophen Ur Barbiturates Screen Ur Phencyclidine Scrn Ur Amphetamines Screen U Benzodiazepines Scrn Urine Cocaine Screen U Marijuana (THC) Screen Drugs of Abuse Note Plasma/Serum Alcohol 07/26/20 07/26/20 07/26/20 15:43 15:43 Unknown WBC RBC Hgb Hct MCV MCH MCHC RDW Plt Count Lymph % (Auto) Garden % (Auto) Eos % (Auto) Baso % (Auto) Lymph # Garden # Eos # Baso # Seg Neutrophils % Seg Neutrophils # Sodium Potassium Chloride Carbon Dioxide Anion Gap BUN Creatinine Estimated GFR BUN/Creatinine Ratio Glucose Calcium Urine Color Yellow Urine Turbidity Clear Urine pH 5.0 Ur Specific Alva 1.030 Urine Protein 30 mg/dl Urine Glucose (UA) Neg Urine Ketones 20 Urine Blood Neg Urine Nitrite Neg Urine Bilirubin Neg Urine Urobilinogen < 2.0 Ur Leukocyte Esterase Neg Urine WBC (Auto) 1.0 Urine RBC (Auto) 3.0 U Epithel Cells (Auto) < 1.0 Urine Mucus 2+ Salicylates Urine Opiates Screen Urine Methadone Screen Acetaminophen 5.0 L Ur Barbiturates Screen Ur Phencyclidine Scrn Ur Amphetamines Screen U Benzodiazepines Scrn Urine Cocaine Screen U Marijuana (THC) Screen Drugs of Abuse Note Plasma/Serum Alcohol < 0.01 07/26/20 Unknown WBC RBC Hgb Hct MCV MCH MCHC RDW Plt Count Lymph % (Auto) Garden % (Auto) Eos % (Auto) Baso % (Auto) Lymph # Garden # Eos # Baso # Seg Neutrophils % Seg Neutrophils # Sodium Potassium Chloride Carbon Dioxide Anion Gap BUN Creatinine Estimated GFR BUN/Creatinine Ratio Glucose Calcium Urine Color Urine Turbidity Urine pH Ur Specific Alva Urine Protein Urine Glucose (UA) Urine Ketones Urine Blood Urine Nitrite Urine Bilirubin Urine Urobilinogen Ur Leukocyte Esterase Urine WBC (Auto) Urine RBC (Auto) U Epithel Cells (Auto) Urine Mucus Salicylates Urine Opiates Screen Presumptive negative Urine Methadone Screen Presumptive negative Acetaminophen Ur Barbiturates Screen Presumptive negative Ur Phencyclidine Scrn Presumptive negative Ur Amphetamines Screen Presumptive positive U Benzodiazepines Scrn Presumptive negative Urine Cocaine Screen Presumptive positive U Marijuana (THC) Screen Presumptive positive Drugs of Abuse Note Disclamer Plasma/Serum Alcohol - Differential Diagnosis Schizophrenia, suicidal ideation Critical care attestation.: If time is entered above; I have spent that time in minutes in the direct care of this critically ill patient, excluding procedure time. ED Disposition Clinical Impression: Suicidal ideation, Schizophrenia, Auditory hallucination, Polysubstance abuse Disposition: [id number] PSY HOSP/PSY UNIT Is pt being admited?: No Does the pt Need Aspirin: No Condition: Stable Time of Disposition: 17:45 (Awaiting acceptance)
[2020-07-26 15:57] LABS: Basophils # (Auto) 0.1 K/mm3 (0.0-0.1); Basophils % (Auto) 1.3 % (0.0-1.8); Eosinophils % (Auto) 0.2 % (0.0-4.3); Hematocrit 38.4 % (35.5-45.6); Hemoglobin 13.2 gm/dl (11.8-15.2); Lymphocytes # (Auto) 1.6 K/mm3 (1.2-5.4); Lymphocytes % (Auto) 15.2 % (13.4-35.0); Mean Corpuscular HGB Conc 34 % (32-34); Mean Corpuscular Volume 99 fl (84-94); Monocytes # (Auto) 1.5 K/mm3 (0.0-0.8); Monocytes % (Auto) 14.7 % (0.0-7.3); Platelet Count 199 K/mm3 (140-440); Red Blood Count 3.88 M/mm3 (3.65-5.03); Red Cell Distribution Width 13.4 % (13.2-15.2)
[2020-07-26 16:15] LABS: BUN/Creatinine Ratio 14; Blood Urea Nitrogen 17 mg/dL (9-20); Calcium 9.6 mg/dL (8.4-10.2); Hemolysis Index 12
[2020-07-26 17:14] LABS: Amphetamine Screen,Urine PRESUMPTIVE POSITIVE; Benzodiazepines Screen,Urine PRESUMPTIVE NEGATIVE; Cannabinoid Screen,Urine PRESUMPTIVE POSITIVE; Cocaine Screen,Urine PRESUMPTIVE POSITIVE; Methadone Screen,Urine PRESUMPTIVE NEGATIVE; Opiate Screen,Urine PRESUMPTIVE NEGATIVE
[2020-07-26 17:24] LABS: Bilirubin,Urine NEG (Negative); Blood,Urine NEG (Negative); Color,Urine Yellow (Yellow); Mucus,Urine 2+ /HPF; Urobilinogen,Urine < 2.0 mg/dL (<2.0)
[2020-07-26 19:43] VITALS: BP 134/78
[2020-07-27] MEDS ORDERED: traZODone 50 MG TAB PO ONE (00:22)
[2020-07-27] MEDS ORDERED: ZIPRASIDONE MESYLATE 20 MG VIAL IM ONE ×2 (03:30→03:32)
[2020-07-27] MEDS ORDERED: LORazepam 2 MG/ML VIAL IM ONE (03:30)
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
== END 2020-07-27 13:10 ==
LOC: ED 14:27 → EEVIPCON 14:27 → ED 07-27 13:10
DX: F20.89 Other schizophrenia (principal); I10 Essential (primary) hypertension; Z79.899 Other long term (current) drug therapy; Z91.013 Allergy to seafood
CPT/HCPCS: 36415; 80048; 80307; 81001; 85025; 96372; 99284; J2060; J3486; 80320; G0480

== ENCOUNTER 2021-07-09 14:39 | Emergency (ER) | payer SELFPAY ==
[2021-07-09 19:36] VITALS: BP 172/84
== END 2021-07-09 19:45 | disposition left against medical advice (07) ==
LOC: ED 14:39
DX: R44.0 Auditory hallucinations (principal); Z53.21 Procedure and treatment not carried out due to patient leaving prior to being seen by health care provider